=== PATIENT | female | born 1960 | race Caucasian/White ===

== ENCOUNTER 2016-11-18 14:33 | Emergency (ER) | payer OTHER ==
[~2016-11-18] VITALS: Ht 157.5 cm; Wt 92.4 kg
[~2016-11-18 14:33] MED LIST: DIOVAN40 MG PO; DIOVAN80 MG PO; FLOMAX0.4 MG PO; KEFLEX500 MG PO; LOPID600 MG; PEPCID40 MG PO; TOPROL XL100 MG; TORADOL10 MG PO; ZOFRAN4 MG PO
[2016-11-18] MEDS ORDERED: MEDROL DOSEPAK4 MG PO (15:02)
[2016-11-18] MEDS ORDERED: ULTRAM50 MG PO (15:02)
[2016-11-18 15:23] VITALS: BP 170/127
== END 2016-11-18 15:31 | disposition home or self-care (01) ==
LOC: EME 14:33
DX: M54.42 Lumbago with sciatica, left side (principal); I10 Essential (primary) hypertension; E78.00 Pure hypercholesterolemia, unspecified; F17.200 Nicotine dependence, unspecified, uncomplicated
CPT/HCPCS: 99281; 99284